=== PATIENT | female | born 1980 | race African-American/Black ===

== ENCOUNTER 2016-02-09 15:23 | Inpatient (IN) | payer OTHER ==
[~2016-02-09] VITALS: Ht 165.1 cm; Wt 107.7 kg
[~2016-02-09 15:23] MED LIST: ABILIFY15 MG PO; ADVAIR 100/501 DISK IH; ADVAIR 250/501 DISK IH; ATARAX,VISTARIL50 MG PO; BENADRYL50 MG PO; BENTYL10 MG PO; BUPRENORPHINE HC8 MG SL; CIPRO500 MG PO; CLINDAMYCIN HC300 MG PO; CYANOCOBALAM1000 MCG PO; DEPAKOTE500 MG PO; DICLOFENAC SODI75 MG PO; DURAGESIC12 MCG TD; FLEXERIL10 MG PO; FLONASE ALLERG9.9 ML BOTH NARES; FLONASE16 G1 BOTH NARES; FUROSEMIDE40 MG PO; GABAPENTIN300 MG PO; INDOCIN25 MG PO; KALETRA 100-251 EACH PO; KALETRA 200/501 TAB PO; KEFLEX500 MG PO; LASIX40 MG PO; LYRICA50 MG PO; MORPHINE SULFAT15 MG PO; MOTRIN600 MG PO; NAPROXEN500 MG PO; OXAYDO5 MG PO; PERCOCET 10/1 TABLET PO; PERCOCET 5/31 TABLET PO; PREDNISONE10 M1 PO; PREDNISONE20 MG PO; PROAIR HFA8.5 GM IH; PROZAC10 MG PO; PROZAC20 MG PO; SOMA350 MG PO; SUBOXONE 8 MG-1 EAC2 SL; TRAMADOL HCL50 MG PO; TRUVADA1 TABLET PO; ULTRAM50 MG PO; VENTOLIN HFA18 GM IH; VITAMIN B122500 MCG PO; XANAX0.5 MG PO; XANAX2 MG PO; ZANTAC150 MG PO; ZITHROMAX Z-PA250 MG PO; ZUBSOLV 8.6-2.1 EACH SL
[2016-02-09 16:26] LABS: HEMATOCRIT 37.1 % (36.0-46.0); MCH 27.2 PG (29.0-34.0); MCHC 33.2 G/DL (30.0-36.0); MCV 81.9 FL (83-99); MEAN PLAT.VOLUME 9.3 uM^3 (9.5-12.4); PLATELET COUNT 216 K/uL (156-360); RBC DIS.WIDTH-CV 13.1 % (11.8-14.6); RBC DIS.WIDTH-SD 38.1 % (39-53); RED BLOOD COUNT 4.53 M/uL (3.80-5.20); WHITE BLOOD COUNT 4.3 K/uL (4.1-10.2)
[2016-02-09 16:35] LABS: CHLORIDE 110 mEq/L (99-109); POTASSIUM 3.5 mEq/L (3.7-5.4); SODIUM 141 mEq/L (136-147)
[2016-02-09 16:36] LABS: GLUCOSE 91 mg/dL (70-99)
[2016-02-09 16:38] LABS: ANION GAP 13 MEQ/L (2-14)
[2016-02-09 16:40] LABS: GFR ESTIMATE (CALCULATED) > 59 mL/min/; SERUM ETHYL ALCOHOL < 10 mg/dL
[2016-02-09 16:41] LABS: UREA NITROGEN (BUN) 9 mg/dL (9-23)
[2016-02-09 16:49] LABS: QUANTITATIVE HCG < 4.0 MIU/ML
[2016-02-09 20:05] VITALS: BP 100/55
[2016-02-09 20:31] VITALS: BP 100/55
[2016-02-10 09:15] VITALS: BP 123/72
[2016-02-10 15:46] VITALS: BP 132/80
[2016-02-11 07:51] VITALS: BP 112/57
[2016-02-11 15:35] VITALS: BP 124/59
[2016-02-12 07:58] VITALS: BP 109/59
[2016-02-12 08:47] LABS: AMPHETAMINES QUANT VALUE 0 NG/ML; BARBITUATES QUANT VALUE 0 NG/ML; BENZODIAZEPINES QUANT VALUE 0 NG/ML; BENZODIAZEPINES, URINE SCREEN Negative (200 ng/mL); MARIJUANA QUANT VALUE 0 NG/ML; PHENCYCLIDINE QUANT VALUE 0 NG/ML
[2016-02-12 16:02] VITALS: BP 117/58
[2016-02-13 08:07] VITALS: BP 113/58
[2016-02-13] MEDS ORDERED: DIVALPROEX SOD250 MG PO (11:07)
== END 2016-02-13 14:00 | disposition home or self-care (01) | DRG 896 ==
LOC: EME → EDBD 15:23 → EME 15:23 → 1WEST 18:28 → EDOF 18:28 → 1WEST 19:58
PROVIDERS: Emergency Medicine; Nurse Practitioner Family
DX: F11.921 Opioid use, unspecified with intoxication delirium (principal); B20 Human immunodeficiency virus [HIV] disease; F31.9 Bipolar disorder, unspecified; F41.9 Anxiety disorder, unspecified; G89.29 Other chronic pain; M54.9 Dorsalgia, unspecified
CPT/HCPCS: 80048; 84702; 85027; 90837; 97150 GO; 97165 GO; 99281; 99285; G0480; J1630; J2060; Q0177

== ENCOUNTER 2016-02-16 11:54 | Emergency (ER) | payer OTHER ==
[~2016-02-16] VITALS: Ht 167.6 cm; Wt 106.7 kg
[~2016-02-16 11:54] MED LIST changes: +DIVALPROEX SOD250 MG PO
[2016-02-16 13:55] VITALS: BP 130/80
== END 2016-02-16 13:56 | disposition home or self-care (01) ==
LOC: EME 11:54
DX: F22 Delusional disorders (principal); J45.909 Unspecified asthma, uncomplicated; K21.9 Gastro-esophageal reflux disease without esophagitis; M32.9 Systemic lupus erythematosus, unspecified; Z21 Asymptomatic human immunodeficiency virus [HIV] infection status; M06.9 Rheumatoid arthritis, unspecified; R73.03 Prediabetes; F17.200 Nicotine dependence, unspecified, uncomplicated
CPT/HCPCS: 80053; 81003; 85027; 90837; 99281; 99284; G0480

== ENCOUNTER 2016-02-17 14:48 | Emergency (ER) | payer OTHER ==
[~2016-02-17] VITALS: Ht 167.6 cm; Wt 106.5 kg
[2016-02-17 17:38] LABS: EOSINOPHIL (%) 0 % (0-5); HEMATOCRIT 37.2 % (36.0-46.0); IMMATURE GRANULOCYTE (%) 0.3 % (0.0-0.7); IMMATURE GRANULOCYTE COUNT 0.1 K/uL; LYMPHOCYTE COUNT 1.6 K/uL (1.0-2.8); MCH 27.4 PG (29.0-34.0); MCHC 32.5 G/DL (30.0-36.0); MCV 84.4 FL (83-99); MEAN PLAT.VOLUME 9.8 uM^3 (9.5-12.4); MONOCYTE (%) 12.7 % (3-12); MONOCYTE COUNT 0.4 K/uL (0-0.8); NEUTROPHIL (%) 37.2 % (45-76); NEUTROPHIL COUNT 1.2 K/uL (1.8-6.4); PLATELET COUNT 219 K/uL (156-360); RBC DIS.WIDTH-CV 13.5 % (11.8-14.6); RBC DIS.WIDTH-SD 40.6 % (39-53); RED BLOOD COUNT 4.41 M/uL (3.80-5.20); WHITE BLOOD COUNT 3.2 K/uL (4.1-10.2)
[2016-02-17 17:49] LABS: CHLORIDE 107 mEq/L (99-109); POTASSIUM 3.6 mEq/L (3.7-5.4); SODIUM 140 mEq/L (136-147)
[2016-02-17 17:52] LABS: GLUCOSE 103 mg/dL (70-99)
[2016-02-17 17:53] LABS: ANION GAP 11 MEQ/L (2-14); TOTAL BILIRUBIN 0.6 mg/dL (0.0-1.0)
[2016-02-17 17:54] LABS: SERUM ETHYL ALCOHOL < 10 mg/dL
[2016-02-17 17:55] LABS: ALKALINE PHOSPHATASE 96 IU/L (3-129); GFR ESTIMATE (CALCULATED) > 59 mL/min/
[2016-02-17 17:56] LABS: UREA NITROGEN (BUN) 8 mg/dL (9-23)
[2016-02-17 18:04] LABS: QUANTITATIVE HCG < 4.0 MIU/ML
[2016-02-17 18:28] LABS: SAMPLE HEMOLYSIS CHECK 0; SAMPLE ICTERIC CHECK 0; SAMPLE LIPEMIA CHECK 0
[2016-02-17 18:57] VITALS: BP 105/68
== END 2016-02-17 18:57 | disposition home or self-care (01) ==
LOC: EME 14:48
PROVIDERS: Emergency Medicine
DX: F31.9 Bipolar disorder, unspecified (principal); F41.9 Anxiety disorder, unspecified; Z21 Asymptomatic human immunodeficiency virus [HIV] infection status; M32.9 Systemic lupus erythematosus, unspecified; M06.9 Rheumatoid arthritis, unspecified; Z87.891 Personal history of nicotine dependence
CPT/HCPCS: 80053; 80164; 84702; 85025; 90839; 99281; 99283; G0480

== ENCOUNTER 2016-02-27 09:41 | Emergency (ER) | payer OTHER ==
[~2016-02-27] VITALS: Ht 165.1 cm; Wt 104.6 kg
[2016-02-27 10:53] LABS: CHLORIDE 110 mEq/L (99-109); SODIUM 140 mEq/L (136-147)
[2016-02-27 10:55] LABS: GLUCOSE 112 mg/dL (70-99)
[2016-02-27 10:56] LABS: ANION GAP 10 MEQ/L (2-14)
[2016-02-27 10:58] LABS: HEMATOCRIT 36.6 % (36.0-46.0); MCHC 32.8 G/DL (30.0-36.0); MCV 85.3 FL (83-99); MEAN PLAT.VOLUME 9.8 uM^3 (9.5-12.4); PLATELET COUNT 199 K/uL (156-360); RBC DIS.WIDTH-CV 13.5 % (11.8-14.6); RBC DIS.WIDTH-SD 41.9 % (39-53); RED BLOOD COUNT 4.29 M/uL (3.80-5.20); SERUM ETHYL ALCOHOL < 10 mg/dL
[2016-02-27 10:59] LABS: GFR ESTIMATE (CALCULATED) > 59 mL/min/; WHITE BLOOD COUNT 5.7 K/uL (4.1-10.2)
[2016-02-27 11:01] LABS: UREA NITROGEN (BUN) 8 mg/dL (9-23)
[2016-02-27 11:02] LABS: SALICYLATE < 5.0 MG/DL (15-30)
[2016-02-27 11:10] LABS: QUANTITATIVE HCG < 4.0 MIU/ML
[2016-02-27 13:10] LABS: AMPHETAMINE NEGATIVE (500 ng/mL); BARBITURATES NEGATIVE (200 ng/mL); BENZODIAZEPINES NEGATIVE (150 ng/mL); COCAINE NEGATIVE (150 ng/mL); INTERNAL CONTROLS VALID? YES; METHADONE NEGATIVE (200 ng/mL); METHAMPHETAMINE NEGATIVE (500 ng/mL); OPIATES (MORPHINE) NEGATIVE (100 ng/mL); OXYCODONE NEGATIVE (100 ng/mL); PHENCYCLIDINE NEGATIVE (25 ng/mL); PROPOXYPHENE NEGATIVE (300 ng/mL); THC CANNABINOIDS NEGATIVE (50 ng/mL); TRICYCLIC ANTIDEPRESSANTS NEGATIVE (300 ng/mL)
[2016-02-27 14:00] VITALS: BP 112/72
== END 2016-02-27 14:15 ==
LOC: EME → EDBD 09:41 → EME 09:41
PROVIDERS: Emergency Medicine
DX: Z04.6 Encounter for general psychiatric examination, requested by authority (principal); F43.9 Reaction to severe stress, unspecified; F31.9 Bipolar disorder, unspecified; Z21 Asymptomatic human immunodeficiency virus [HIV] infection status; Z88.0 Allergy status to penicillin; Z88.6 Allergy status to analgesic agent
CPT/HCPCS: 80048; 84702; 85027; 90837; 99281; 99284; G0480

== ENCOUNTER 2016-08-25 03:22 | Inpatient (IN) | payer OTHER ==
[~2016-08-25] VITALS: Ht 167.6 cm; Wt 106.7 kg
[2016-08-25] MEDS ORDERED: GABAPENTIN600 MG PO (03:29)
[2016-08-25] MEDS ORDERED: HYDROCODON-ACE1 EAC7 PO (03:29)
[2016-08-25] MEDS ORDERED: BACTRIM,SEPT1 TABLET PO (03:30)
[2016-08-25] MEDS ORDERED: MORPHINE SULFAT15 M1 PO (03:30)
[2016-08-25] MEDS ORDERED: STRIBILD TABLE1 EACH PO (03:32)
[2016-08-25 04:37] LABS: HEMATOCRIT 34.1 % (36.0-46.0); MCH 27.7 PG (29.0-34.0); MCV 86.5 FL (83-99); MEAN PLAT.VOLUME 9.6 uM^3 (9.5-12.4); PLATELET COUNT 208 K/uL (156-360); RBC DIS.WIDTH-CV 12.5 % (11.8-14.6); RBC DIS.WIDTH-SD 40.1 % (39-53); RED BLOOD COUNT 3.94 M/uL (3.80-5.20); WHITE BLOOD COUNT 5.2 K/uL (4.1-10.2)
[2016-08-25 04:48] LABS: CHLORIDE 109 mEq/L (99-109); POTASSIUM 4.2 mEq/L (3.7-5.4); SODIUM 138 mEq/L (136-147)
[2016-08-25 04:50] LABS: GLUCOSE 115 mg/dL (70-99)
[2016-08-25 04:51] LABS: ANION GAP 8 MEQ/L (2-14)
[2016-08-25 04:53] LABS: SERUM ETHYL ALCOHOL < 10 mg/dL
[2016-08-25 04:54] LABS: GFR ESTIMATE (CALCULATED) > 59 mL/min/
[2016-08-25 04:56] LABS: UREA NITROGEN (BUN) 15 mg/dL (9-23)
[2016-08-25 04:57] LABS: SALICYLATE < 5.0 MG/DL (15-30)
[2016-08-25 05:03] LABS: QUANTITATIVE HCG 27.4 MIU/ML
[2016-08-25] MEDS ORDERED: AZITHROMYCIN600 MG PO (07:51)
[2016-08-25 15:42] VITALS: BP 118/63
[2016-08-26 07:07] VITALS: BP 106/57
[2016-08-26 15:40] VITALS: BP 103/57
[2016-08-27 07:26] VITALS: BP 105/58
[2016-08-27 15:38] VITALS: BP 120/74
[2016-08-28 07:31] VITALS: BP 116/55
[2016-08-28 15:20] VITALS: BP 120/57
[2016-08-29 07:25] VITALS: BP 97/58
[2016-08-29 15:23] VITALS: BP 100/56
[2016-08-30 07:31] VITALS: BP 112/55
[2016-08-30 15:36] VITALS: BP 113/58
[2016-08-31 07:38] VITALS: BP 114/58
[2016-08-31] MEDS ORDERED: FLUPHENAZINE HC10 MG PO (10:26)
[2016-08-31] MEDS ORDERED: DIVALPROEX SOD500 MG PO (10:26)
== END 2016-08-31 12:49 | disposition home or self-care (01) | DRG 881 ==
LOC: EME → EDBD 03:22 → EDOF 04:40 → 1WEST 04:40
PROVIDERS: Emergency Medicine
DX: F32.9 Major depressive disorder, single episode, unspecified (principal); Z21 Asymptomatic human immunodeficiency virus [HIV] infection status; K21.9 Gastro-esophageal reflux disease without esophagitis; G47.10 Hypersomnia, unspecified; M06.9 Rheumatoid arthritis, unspecified; J45.909 Unspecified asthma, uncomplicated; F22 Delusional disorders; Z87.891 Personal history of nicotine dependence; Z91.5 Personal history of self-harm
CPT/HCPCS: 80048; 80306 90; 81003; 84702; 85027; 90837; 97150 GO; 97166 GO; 99281; 99285; G0480; Q0177

== ENCOUNTER 2016-10-08 12:07 | Emergency (ER) | payer OTHER ==
[~2016-10-08] VITALS: Ht 167.6 cm; Wt 109.3 kg
[~2016-10-08 12:07] MED LIST changes: +AZITHROMYCIN600 MG PO; +BACTRIM,SEPT1 TABLET PO; +DIVALPROEX SOD500 MG PO; +FLUPHENAZINE HC10 MG PO; +GABAPENTIN600 MG PO; +HYDROCODON-ACE1 EAC7 PO; +MORPHINE SULFAT15 M1 PO; +STRIBILD TABLE1 EACH PO
[2016-10-08 13:12] LABS: EOSINOPHIL (%) 2.2 % (0-5); EOSINOPHIL COUNT 0.1 K/uL (0-0.3); HEMATOCRIT 36.8 % (36.0-46.0); IMMATURE GRANULOCYTE (%) 0.3 % (0.0-0.7); INSTRUMENT ABS NEUTROPHIL CT 1.2 K/uL; LYMPHOCYTE COUNT 2.1 K/uL (1.0-2.8); MCH 28.2 PG (29.0-34.0); MCHC 32.1 G/DL (30.0-36.0); MCV 87.8 FL (83-99); MEAN PLAT.VOLUME 9.6 uM^3 (9.5-12.4); MONOCYTE (%) 9.7 % (3-12); MONOCYTE COUNT 0.4 K/uL (0-0.8); NEUTROPHIL (%) 31.7 % (45-76); NEUTROPHIL COUNT 1.2 K/uL (1.8-6.4); PLATELET COUNT 171 K/uL (156-360); RBC DIS.WIDTH-CV 13.3 % (11.8-14.6); RBC DIS.WIDTH-SD 43.2 % (39-53); RED BLOOD COUNT 4.19 M/uL (3.80-5.20); WHITE BLOOD COUNT 3.7 K/uL (4.1-10.2)
[2016-10-08 13:22] LABS: CHLORIDE 106 mEq/L (99-109); POTASSIUM 4.6 mEq/L (3.7-5.4); SODIUM 136 mEq/L (136-147)
[2016-10-08 13:24] LABS: GLUCOSE 85 mg/dL (70-99)
[2016-10-08 13:25] LABS: ANION GAP 8 MEQ/L (2-14)
[2016-10-08 13:27] LABS: GFR ESTIMATE (CALCULATED) > 59 mL/min/; SERUM ETHYL ALCOHOL < 10 mg/dL
[2016-10-08 13:28] LABS: UREA NITROGEN (BUN) 12 mg/dL (9-23)
[2016-10-08 13:35] LABS: QUANTITATIVE HCG < 4.0 MIU/ML
[2016-10-08 14:12] VITALS: BP 121/77
== END 2016-10-08 14:14 | disposition home or self-care (01) ==
LOC: EME 12:07
PROVIDERS: Emergency Medicine
DX: F25.9 Schizoaffective disorder, unspecified (principal); B20 Human immunodeficiency virus [HIV] disease; F17.200 Nicotine dependence, unspecified, uncomplicated
CPT/HCPCS: 80048; 81003; 84702; 85025; 90839; 99281; 99285; G0480

== ENCOUNTER 2017-03-17 12:44 | Emergency (ER) | payer OTHER ==
[~2017-03-17] VITALS: Ht 167.6 cm; Wt 111.1 kg
[2017-03-17 13:04] LABS: MCH 29.8 PG (29.0-34.0); MCHC 34.3 G/DL (30.0-36.0); MCV 86.8 FL (83-99); PLATELET COUNT 236 K/uL (156-360); RBC DIS.WIDTH-SD 38.4 % (39-53); RED BLOOD COUNT 4.03 M/uL (3.80-5.20); WHITE BLOOD COUNT 4.8 K/uL (4.1-10.2)
[2017-03-17 13:22] LABS: ALBUMIN 3.8 g/dL (3.2-4.8); CHLORIDE 106 mEq/L (99-109); POTASSIUM 3.8 mEq/L (3.7-5.4); SODIUM 136 mEq/L (136-147)
[2017-03-17 13:23] LABS: APPEARANCE SL.HAZY ((CLEAR)); BILIRUBIN NEGATIVE; BLOOD NEGATIVE; COLOR YELLOW ((YELLOW)); GLUCOSE (STRIP) NEGATIVE; KETONES NEGATIVE; LEUKOCYTES NEGATIVE; NITRITE NEGATIVE; PROTEIN (STRIP) 30; SPECIFIC GRAVITY 1.027 (1.000-1.030); UROBILINOGEN 0.2 MG/DL (0.2-1.0)
[2017-03-17 13:24] LABS: GLUCOSE 103 mg/dL (70-99); TOTAL PROTEIN 7.3 g/dL (6.4-8.3)
[2017-03-17 13:26] LABS: TOTAL BILIRUBIN 0.2 mg/dL (0.0-1.0)
[2017-03-17 13:27] LABS: BACTERIA RARE /HPF; EPITHELIAL CELLS 2+ /HPF; MUCUS 2+ /LPF; RED BLOOD CELLS 0-5 /HPF (0-5); UCUL ADDED? NO; WHITE BLOOD CELLS 0-5 /HPF (0-5)
[2017-03-17 13:28] LABS: ALKALINE PHOSPHATASE 93 IU/L (3-129); CREATININE 0.8 mg/dL (0.6-1.3); GFR ESTIMATE (CALCULATED) > 59 mL/min/
[2017-03-17 13:29] LABS: UREA NITROGEN (BUN) 8 mg/dL (9-23)
[2017-03-17 13:30] LABS: AST (GOT) 11 IU/L (2-34)
[2017-03-17 13:31] LABS: ALT (GPT) 10 IU/L (3-49)
[2017-03-17 13:54] LABS: QUANTITATIVE HCG 86685.9 MIU/ML
[2017-03-17] MEDS ORDERED: ZOFRAN ODT4 MG PO (16:45)
[2017-03-17 16:52] VITALS: BP 127/83
== END 2017-03-17 16:52 | disposition home or self-care (01) ==
LOC: EME 12:44 → RME 12:44
DX: O99.89 Other specified diseases and conditions complicating pregnancy, childbirth and the puerperium (principal); R10.13 Epigastric pain; Z3A.10 10 weeks gestation of pregnancy; O98.711 Human immunodeficiency virus [HIV] disease complicating pregnancy, first trimester; Z21 Asymptomatic human immunodeficiency virus [HIV] infection status; O99.611 Diseases of the digestive system complicating pregnancy, first trimester; K21.9 Gastro-esophageal reflux disease without esophagitis; O99.511 Diseases of the respiratory system complicating pregnancy, first trimester; J45.909 Unspecified asthma, uncomplicated; O99.331 Smoking (tobacco) complicating pregnancy, first trimester; F17.200 Nicotine dependence, unspecified, uncomplicated; O99.341 Other mental disorders complicating pregnancy, first trimester; F32.9 Major depressive disorder, single episode, unspecified; Z88.0 Allergy status to penicillin; Z88.5 Allergy status to narcotic agent
CPT/HCPCS: 76801; 80053; 81003; 84702; 85027; 99281; 99284

== ENCOUNTER 2017-03-30 14:29 | Emergency (ER) | payer OTHER ==
[~2017-03-30] VITALS: Ht 177.8 cm; Wt 104.9 kg
[~2017-03-30 14:29] MED LIST changes: +ZOFRAN ODT4 MG PO
[2017-03-30 15:34] LABS: HEMATOCRIT 35.4 % (36.0-46.0); HEMOGLOBIN 12.2 G/DL (11.9-15.5); MCH 29.3 PG (29.0-34.0); MCHC 34.5 G/DL (30.0-36.0); MCV 84.9 FL (83-99); PLATELET COUNT 241 K/uL (156-360); RBC DIS.WIDTH-CV 11.9 % (11.8-14.6); RED BLOOD COUNT 4.17 M/uL (3.80-5.20)
[2017-03-30 15:41] LABS: CHLORIDE 107 mEq/L (99-109); POTASSIUM 3.3 mEq/L (3.7-5.4); SODIUM 137 mEq/L (136-147)
[2017-03-30 15:43] LABS: GLUCOSE 106 mg/dL (70-99); TOTAL PROTEIN 7.5 g/dL (6.4-8.3)
[2017-03-30 15:45] LABS: TOTAL BILIRUBIN 0.7 mg/dL (0.0-1.0)
[2017-03-30 15:47] LABS: ALKALINE PHOSPHATASE 98 IU/L (3-129); CREATININE 0.8 mg/dL (0.6-1.3); GFR ESTIMATE (CALCULATED) > 59 mL/min/
[2017-03-30 15:48] LABS: UREA NITROGEN (BUN) 5 mg/dL (9-23)
[2017-03-30 15:49] LABS: AST (GOT) 16 IU/L (2-34)
[2017-03-30 15:50] LABS: ALT (GPT) 22 IU/L (3-49)
[2017-03-30 16:15] LABS: QUANTITATIVE HCG 79265.3 MIU/ML
[2017-03-30 16:58] LABS: APPEARANCE SL.HAZY ((CLEAR)); BILIRUBIN NEGATIVE; BLOOD NEGATIVE; COLOR AMBER ((YELLOW)); GLUCOSE (STRIP) NEGATIVE; KETONES 80; LEUKOCYTES NEGATIVE; NITRITE NEGATIVE; PROTEIN (STRIP) 100; SPECIFIC GRAVITY 1.031 (1.000-1.030)
[2017-03-30 17:27] LABS: RED BLOOD CELLS NONE SEEN /HPF (0-5); WHITE BLOOD CELLS NONE SEEN /HPF (0-5)
[2017-03-30 17:28] LABS: BACTERIA RARE /HPF; EPITHELIAL CELLS 2+ /HPF; MUCUS 2+ /LPF; UCUL ADDED? NO
[2017-03-30] MEDS ORDERED: ZOFRAN ODT4 MG PO (18:09)
[2017-03-30 20:08] VITALS: BP 111/81
== END 2017-03-30 20:09 | disposition home or self-care (01) ==
LOC: EME 14:29
DX: O99.281 Endocrine, nutritional and metabolic diseases complicating pregnancy, first trimester (principal); E86.0 Dehydration; O21.9 Vomiting of pregnancy, unspecified; Z3A.12 12 weeks gestation of pregnancy; O99.611 Diseases of the digestive system complicating pregnancy, first trimester; K21.9 Gastro-esophageal reflux disease without esophagitis; O99.511 Diseases of the respiratory system complicating pregnancy, first trimester; J45.909 Unspecified asthma, uncomplicated; O99.341 Other mental disorders complicating pregnancy, first trimester; F32.9 Major depressive disorder, single episode, unspecified; O26.891 Other specified pregnancy related conditions, first trimester; M06.9 Rheumatoid arthritis, unspecified; M32.9 Systemic lupus erythematosus, unspecified; Z21 Asymptomatic human immunodeficiency virus [HIV] infection status; Z88.0 Allergy status to penicillin; Z88.5 Allergy status to narcotic agent; Z91.040 Latex allergy status; Z87.891 Personal history of nicotine dependence
CPT/HCPCS: 80053; 81003; 84702; 85027; 99281; 99285; J2405; J7030

== ENCOUNTER 2017-04-08 11:32 | Inpatient (IN) | payer OTHER ==
[~2017-04-08] VITALS: Ht 165.1 cm; Wt 98.7 kg
[2017-04-08 12:57] LABS: BASOPHIL (%) 0.2 % (0-1); EOSINOPHIL (%) 0.2 % (0-5); HEMOGLOBIN 12.5 G/DL (11.9-15.5); IMMATURE GRANULOCYTE (%) 0.4 % (0.0-0.7); LYMPHOCYTE (%) 32.8 % (15-42); LYMPHOCYTE COUNT 1.7 K/uL (1.0-2.8); MCH 29.1 PG (29.0-34.0); MCHC 34.7 G/DL (30.0-36.0); MCV 83.9 FL (83-99); MONOCYTE (%) 9.1 % (3-12); MONOCYTE COUNT 0.5 K/uL (0-0.8); NEUTROPHIL (%) 57.3 % (45-76); PLATELET COUNT 251 K/uL (156-360); RBC DIS.WIDTH-SD 36.4 % (39-53); RED BLOOD COUNT 4.29 M/uL (3.80-5.20); WHITE BLOOD COUNT 5.3 K/uL (4.1-10.2)
[2017-04-08 13:05] LABS: ALBUMIN 4.1 g/dL (3.2-4.8); CHLORIDE 105 mEq/L (99-109)
[2017-04-08 13:06] LABS: POTASSIUM 3.5 mEq/L (3.7-5.4); SODIUM 135 mEq/L (136-147)
[2017-04-08 13:08] LABS: GLUCOSE 104 mg/dL (70-99); TOTAL PROTEIN 8.1 g/dL (6.4-8.3)
[2017-04-08 13:10] LABS: TOTAL BILIRUBIN 1.3 mg/dL (0.0-1.0)
[2017-04-08 13:11] LABS: SERUM ETHYL ALCOHOL < 10 mg/dL
[2017-04-08 13:12] LABS: ALKALINE PHOSPHATASE 108 IU/L (3-129); CREATININE 0.7 mg/dL (0.6-1.3); GFR ESTIMATE (CALCULATED) > 59 mL/min/
[2017-04-08 13:13] LABS: AST (GOT) 33 IU/L (2-34); DIRECT BILIRUBIN 0.5 mg/dL (0.0-0.3)
[2017-04-08 13:14] LABS: UREA NITROGEN (BUN) 8 mg/dL (9-23)
[2017-04-08 13:15] LABS: SALICYLATE < 5.0 MG/DL (15-30)
[2017-04-08 13:16] LABS: ACETAMINOPHEN (TYLENOL) < 10 mcg/mL (10-30); ALT (GPT) 61 IU/L (3-49)
[2017-04-08 13:46] LABS: QUANTITATIVE HCG 75817.2 MIU/ML
[2017-04-08 16:59] VITALS: BP 121/69
[2017-04-08 17:00] VITALS: BP 121/69
[2017-04-08] MEDS ORDERED: MELOXICAM15 MG PO (18:38)
[2017-04-08] MEDS ORDERED: SERTRALINE HCL50 MG PO (18:40)
[2017-04-08] MEDS ORDERED: CYMBALTA30 MG PO (18:44)
[2017-04-08] MEDS ORDERED: PERCOCET 5/31 TABLET PO (18:50)
[2017-04-08] MEDS ORDERED: OXYCODONE-APAP1 EAC6 PO (18:53)
[2017-04-10 15:46] VITALS: BP 122/60
[2017-04-11 08:00] VITALS: BP 100/56
[2017-04-11 15:44] VITALS: BP 129/71
[2017-04-12 07:32] VITALS: BP 112/70
[2017-04-12] MEDS ORDERED: FLUPHENAZINE HCL1 MG PO (09:07)
[2017-04-12] MEDS ORDERED: PRENATAL VITAM1 EAC6 PO (09:07)
== END 2017-04-12 13:17 | disposition home or self-care (01) | DRG 885 ==
LOC: EME 11:32 → 1WEST 15:50 → EDOF 15:50 → ENRESERV 16:25 → 1WEST 16:49
PROVIDERS: Emergency Medicine
DX: F25.0 Schizoaffective disorder, bipolar type (principal); O99.340 Other mental disorders complicating pregnancy, unspecified trimester; Z21 Asymptomatic human immunodeficiency virus [HIV] infection status; M32.9 Systemic lupus erythematosus, unspecified; M06.9 Rheumatoid arthritis, unspecified; F41.9 Anxiety disorder, unspecified; Z87.891 Personal history of nicotine dependence; K21.9 Gastro-esophageal reflux disease without esophagitis; J45.909 Unspecified asthma, uncomplicated; Z91.5 Personal history of self-harm; D64.9 Anemia, unspecified
CPT/HCPCS: 80048; 80076; 81003; 84702; 85025; 90837; 97150 GO; 97165 GO; 99281; 99284; G0480

== ENCOUNTER 2017-04-17 14:40 | Inpatient (IN) | payer OTHER ==
[~2017-04-17] VITALS: Ht 167.6 cm; Wt 102.3 kg
[~2017-04-17 14:40] MED LIST changes: +CYMBALTA30 MG PO; +FLUPHENAZINE HCL1 MG PO; +MELOXICAM15 MG PO; +OXYCODONE-APAP1 EAC6 PO; +PRENATAL VITAM1 EAC6 PO; +SERTRALINE HCL50 MG PO
[2017-04-17 15:39] LABS: HEMATOCRIT 37.2 % (36.0-46.0); HEMOGLOBIN 12.7 G/DL (11.9-15.5); MCH 28.9 PG (29.0-34.0); MCHC 34.1 G/DL (30.0-36.0); MCV 84.5 FL (83-99); PLATELET COUNT 237 K/uL (156-360); RBC DIS.WIDTH-CV 12.1 % (11.8-14.6)
[2017-04-17 15:47] LABS: CHLORIDE 105 mEq/L (99-109); POTASSIUM 3.5 mEq/L (3.7-5.4); SODIUM 137 mEq/L (136-147)
[2017-04-17 15:49] LABS: GLUCOSE 105 mg/dL (70-99); TOTAL PROTEIN 7.9 g/dL (6.4-8.3)
[2017-04-17 15:51] LABS: TOTAL BILIRUBIN 0.5 mg/dL (0.0-1.0)
[2017-04-17 15:52] LABS: SERUM ETHYL ALCOHOL < 10 mg/dL
[2017-04-17 15:53] LABS: ALKALINE PHOSPHATASE 110 IU/L (3-129); CREATININE 0.7 mg/dL (0.6-1.3); GFR ESTIMATE (CALCULATED) > 59 mL/min/
[2017-04-17 15:54] LABS: AST (GOT) 32 IU/L (2-34); UREA NITROGEN (BUN) 4 mg/dL (9-23)
[2017-04-17 15:56] LABS: ALT (GPT) 56 IU/L (3-49)
[2017-04-17 16:25] LABS: QUANTITATIVE HCG 50964.5 MIU/ML
[2017-04-17 17:12] LABS: APPEARANCE SL.HAZY ((CLEAR)); BILIRUBIN NEGATIVE; BLOOD NEGATIVE; COLOR YELLOW ((YELLOW)); GLUCOSE (STRIP) NEGATIVE; KETONES NEGATIVE; LEUKOCYTES NEGATIVE; NITRITE NEGATIVE; PROTEIN (STRIP) NEGATIVE; SPECIFIC GRAVITY 1.013 (1.000-1.030); UROBILINOGEN 0.2 MG/DL (0.2-1.0)
[2017-04-17 17:19] LABS: BACTERIA RARE /HPF; EPITHELIAL CELLS 1+ /HPF; MUCUS 1+ /LPF; RED BLOOD CELLS 0-5 /HPF (0-5); WHITE BLOOD CELLS 0-5 /HPF (0-5)
[2017-04-17 17:20] LABS: AMPHETAMINE NEGATIVE (500 ng/mL); BARBITURATES NEGATIVE (200 ng/mL); BENZODIAZEPINES NEGATIVE (150 ng/mL); BUPRENORPHINE NEGATIVE (10 ng/mL); COCAINE NEGATIVE (150 ng/mL); METHADONE NEGATIVE (200 ng/mL); METHAMPHETAMINE NEGATIVE (500 ng/mL); OPIATES (MORPHINE) NEGATIVE (100 ng/mL); OXYCODONE NEGATIVE (100 ng/mL); PHENCYCLIDINE NEGATIVE (25 ng/mL); PROPOXYPHENE NEGATIVE (300 ng/mL); THC CANNABINOIDS NEGATIVE (50 ng/mL); TRICYCLIC ANTIDEPRESSANTS NEGATIVE (300 ng/mL)
[2017-04-17 22:42] VITALS: BP 107/67
[2017-04-17 22:43] VITALS: BP 107/67
[2017-04-18 07:39] VITALS: BP 96/55
[2017-04-18 15:30] VITALS: BP 91/53
[2017-04-19 08:09] VITALS: BP 102/56
[2017-04-19 16:12] VITALS: BP 114/67
[2017-04-20 07:21] VITALS: BP 102/55
[2017-04-20] MEDS ORDERED: FLUPHENAZINE HCL1 MG PO (08:53)
[2017-04-20] MEDS ORDERED: FLUPHENAZI25 MG/1 ML IM (08:53)
== END 2017-04-20 10:02 | disposition home or self-care (01) | DRG 885 ==
LOC: EME 14:40 → 1WEST 21:33 → EDOF 21:33 → 1WEST 21:33 → ENRESERV 22:01 → 1WEST 22:36
PROVIDERS: Emergency Medicine
DX: F25.0 Schizoaffective disorder, bipolar type (principal); F44.9 Dissociative and conversion disorder, unspecified; E87.6 Hypokalemia; Z21 Asymptomatic human immunodeficiency virus [HIV] infection status; Z33.1 Pregnant state, incidental; Z91.19 Patient's noncompliance with other medical treatment and regimen
CPT/HCPCS: 80053; 81003; 84702; 85027; 90839; 99281; 99285; G0480; J2680

== ENCOUNTER 2017-04-25 06:29 | Emergency (ER) | payer OTHER ==
[~2017-04-25] VITALS: Ht 167.6 cm; Wt 106.6 kg
[~2017-04-25 06:29] MED LIST changes: +FLUPHENAZI25 MG/1 ML IM
[2017-04-25] MEDS ORDERED: ZOFRAN ODT8 MG PO (06:35)
[2017-04-25 06:59] LABS: HEMATOCRIT 32.6 % (36.0-46.0); HEMOGLOBIN 11.2 G/DL (11.9-15.5); MCHC 34.4 G/DL (30.0-36.0); MCV 84.5 FL (83-99); PLATELET COUNT 222 K/uL (156-360); RBC DIS.WIDTH-CV 12.2 % (11.8-14.6); RBC DIS.WIDTH-SD 37.7 % (39-53); RED BLOOD COUNT 3.86 M/uL (3.80-5.20); WHITE BLOOD COUNT 5.2 K/uL (4.1-10.2)
[2017-04-25 07:37] LABS: ALBUMIN 3.3 G/DL (3.2-4.8); ALKALINE PHOSPHATASE 84 IU/L (3-129); ALT (GPT) 36 IU/L (3-49); AST (GOT) 18 IU/L (2-34); CHLORIDE 108 MEQ/L (99-109); CREATININE 0.7 MG/DL (0.6-1.3); GFR ESTIMATE (CALCULATED) > 59 mL/min/; GLUCOSE 117 mg/dL (70-99); LIPASE 31 U/L (1.0-51.0); POTASSIUM 3.6 MEQ/L (3.7-5.4); SODIUM 137 MEQ/L (136-147); TOTAL PROTEIN 6.4 G/DL (6.4-8.3); UREA NITROGEN (BUN) 10 mg/dL (9-23)
[2017-04-25 07:39] LABS: TOTAL BILIRUBIN 0.2 MG/DL (0.0-1.0)
[2017-04-25 08:04] LABS: QUANTITATIVE HCG 43350.3 MIU/ML
[2017-04-25 08:29] LABS: APPEARANCE CLOUDY ((CLEAR)); BILIRUBIN NEGATIVE; BLOOD LARGE; COLOR AMBER ((YELLOW)); GLUCOSE (STRIP) NEGATIVE; KETONES NEGATIVE; LEUKOCYTES TRACE; NITRITE NEGATIVE; PROTEIN (STRIP) 100; SPECIFIC GRAVITY 1.033 (1.000-1.030); UROBILINOGEN 0.2 MG/DL (0.2-1.0)
[2017-04-25 08:42] LABS: BACTERIA 1+ /HPF; EPITHELIAL CELLS 1+ /HPF; MUCUS NONE SEEN /LPF; RED BLOOD CELLS TNTC /HPF (0-5); UCUL ADDED? YES; WHITE BLOOD CELLS 0-5 /HPF (0-5)
[2017-04-25] MEDS ORDERED: NITROFURANTOIN100 MG PO (09:25)
[2017-04-25 09:49] VITALS: BP 143/80
== END 2017-04-25 09:50 | disposition home or self-care (01) ==
LOC: EME → EDBD 06:29 → EME 06:29
DX: O23.42 Unspecified infection of urinary tract in pregnancy, second trimester (principal); N39.0 Urinary tract infection, site not specified; Z3A.16 16 weeks gestation of pregnancy; O21.9 Vomiting of pregnancy, unspecified; O26.892 Other specified pregnancy related conditions, second trimester; R10.9 Unspecified abdominal pain; O99.612 Diseases of the digestive system complicating pregnancy, second trimester; O99.342 Other mental disorders complicating pregnancy, second trimester; O99.512 Diseases of the respiratory system complicating pregnancy, second trimester; F32.9 Major depressive disorder, single episode, unspecified; F41.9 Anxiety disorder, unspecified; J45.909 Unspecified asthma, uncomplicated; K21.9 Gastro-esophageal reflux disease without esophagitis; M06.9 Rheumatoid arthritis, unspecified; M32.9 Systemic lupus erythematosus, unspecified; Z87.891 Personal history of nicotine dependence; Z88.0 Allergy status to penicillin; Z88.5 Allergy status to narcotic agent
CPT/HCPCS: 76805; 80053; 81003; 83690; 84702; 85027; 87086; 99281; 99284; J0780

== ENCOUNTER 2017-05-02 20:59 | Outpatient (CLI) | payer OTHER ==
[~2017-05-02] VITALS: Ht 160 cm; Wt 105.7 kg
[~2017-05-02 20:59] MED LIST changes: +NITROFURANTOIN100 MG PO; +ZOFRAN ODT8 MG PO
[2017-05-02 21:18] VITALS: BP 115/74
[2017-05-02 21:25] VITALS: BP 123/81
[2017-05-02 22:24] LABS: SOURCE URINE
[2017-05-02 23:59] LABS: APPEARANCE CLEAR ((CLEAR)); BILIRUBIN NEGATIVE; BLOOD SMALL; COLOR YELLOW ((YELLOW)); GLUCOSE (STRIP) NEGATIVE; KETONES NEGATIVE; LEUKOCYTES NEGATIVE; NITRITE NEGATIVE; PROTEIN (STRIP) NEGATIVE; SPECIFIC GRAVITY 1.012 (1.000-1.030); UROBILINOGEN 0.2 MG/DL (0.2-1.0)
[2017-05-03 00:03] LABS: BACTERIA NONE SEEN /HPF; EPITHELIAL CELLS RARE /HPF; MUCUS TRACE /LPF; RED BLOOD CELLS TNTC /HPF (0-5); WHITE BLOOD CELLS 0-5 /HPF (0-5)
[2017-05-03 02:01] LABS: CANDIDA DNA PROBE NEGATIVE; GARDNERELLA DNA PROBE NEGATIVE; TRICHOMONAS DNA PROBE NEGATIVE
[2017-05-03 12:36] LABS: CHLAMYDIA TRACHOMATIS NEGATIVE; NEISSERIA GONORRHOEAE NEGATIVE
== END 2017-05-03 00:35 | disposition home or self-care (01) ==
LOC: EME 20:59 → EDSTATUS 21:13 → LDRP-OP 21:15 → 2WEST 21:16
PROVIDERS: Obstetrics & Gynecology
DX: O26.892 Other specified pregnancy related conditions, second trimester (principal); R10.30 Lower abdominal pain, unspecified; O99.342 Other mental disorders complicating pregnancy, second trimester; F20.9 Schizophrenia, unspecified; F43.10 Post-traumatic stress disorder, unspecified; F41.9 Anxiety disorder, unspecified; F31.9 Bipolar disorder, unspecified; O99.512 Diseases of the respiratory system complicating pregnancy, second trimester; J45.990 Exercise induced bronchospasm; O99.282 Endocrine, nutritional and metabolic diseases complicating pregnancy, second trimester; E28.2 Polycystic ovarian syndrome; O98.712 Human immunodeficiency virus [HIV] disease complicating pregnancy, second trimester; Z21 Asymptomatic human immunodeficiency virus [HIV] infection status; O26.872 Cervical shortening, second trimester; O09.212 Supervision of pregnancy with history of pre-term labor, second trimester; Z87.891 Personal history of nicotine dependence; Z90.49 Acquired absence of other specified parts of digestive tract; Z88.0 Allergy status to penicillin; Z88.5 Allergy status to narcotic agent; Z88.6 Allergy status to analgesic agent; Z3A.17 17 weeks gestation of pregnancy
CPT/HCPCS: 76805; 81003; 87086; 87480; 87491; 87510; 87591; 87660; G0378

== ENCOUNTER 2017-05-04 21:46 | Emergency (ER) | payer OTHER ==
[~2017-05-04] VITALS: Ht 170.2 cm; Wt 110.7 kg
[2017-05-04 22:43] LABS: BASOPHIL (%) 0.2 % (0-1); EOSINOPHIL (%) 0.3 % (0-5); HEMATOCRIT 29.2 % (36.0-46.0); HEMOGLOBIN 10.1 G/DL (11.9-15.5); IMMATURE GRANULOCYTE (%) 0.5 % (0.0-0.7); LYMPHOCYTE (%) 27.8 % (15-42); LYMPHOCYTE COUNT 1.8 K/uL (1.0-2.8); MCH 29.3 PG (29.0-34.0); MCHC 34.6 G/DL (30.0-36.0); MCV 84.6 FL (83-99); MONOCYTE (%) 7.3 % (3-12); MONOCYTE COUNT 0.5 K/uL (0-0.8); NEUTROPHIL (%) 63.9 % (45-76); PLATELET COUNT 241 K/uL (156-360); RBC DIS.WIDTH-CV 12.6 % (11.8-14.6); RBC DIS.WIDTH-SD 37.9 % (39-53); RED BLOOD COUNT 3.45 M/uL (3.80-5.20); WHITE BLOOD COUNT 6.3 K/uL (4.1-10.2)
[2017-05-04 22:53] LABS: CHLORIDE 106 mEq/L (99-109); POTASSIUM 3.7 mEq/L (3.7-5.4); SODIUM 135 mEq/L (136-147)
[2017-05-04 22:55] LABS: GLUCOSE 96 mg/dL (70-99)
[2017-05-04 22:59] LABS: CREATININE 0.6 mg/dL (0.6-1.3); GFR ESTIMATE (CALCULATED) > 59 mL/min/
[2017-05-04 23:00] LABS: UREA NITROGEN (BUN) 8 mg/dL (9-23)
[2017-05-05 00:45] VITALS: BP 116/73
[2017-05-05] MEDS ORDERED: RISPERDAL4 MG PO (20:20)
[2017-05-05] MEDS ORDERED: FLUPHENAZINE HCL5 MG PO (20:20)
[2017-05-05] MEDS ORDERED: STRIBILD TABLE1 EACH PO (20:20)
== END 2017-05-05 00:46 | disposition home or self-care (01) ==
LOC: EME → EDBD 21:46 → EME 21:46
PROVIDERS: Emergency Medicine
DX: O26.892 Other specified pregnancy related conditions, second trimester (principal); R10.2 Pelvic and perineal pain; Z3A.17 17 weeks gestation of pregnancy; O99.112 Other diseases of the blood and blood-forming organs and certain disorders involving the immune mechanism complicating pregnancy, second trimester; M32.9 Systemic lupus erythematosus, unspecified; O99.89 Other specified diseases and conditions complicating pregnancy, childbirth and the puerperium; M06.9 Rheumatoid arthritis, unspecified; O99.512 Diseases of the respiratory system complicating pregnancy, second trimester; J45.909 Unspecified asthma, uncomplicated; O99.612 Diseases of the digestive system complicating pregnancy, second trimester; K21.9 Gastro-esophageal reflux disease without esophagitis; O99.342 Other mental disorders complicating pregnancy, second trimester; F41.9 Anxiety disorder, unspecified; F32.9 Major depressive disorder, single episode, unspecified; F31.9 Bipolar disorder, unspecified; F20.9 Schizophrenia, unspecified; Z21 Asymptomatic human immunodeficiency virus [HIV] infection status; Z87.891 Personal history of nicotine dependence; Z90.49 Acquired absence of other specified parts of digestive tract; Z87.19 Personal history of other diseases of the digestive system; Z91.040 Latex allergy status; Z88.6 Allergy status to analgesic agent; Z88.5 Allergy status to narcotic agent; Z88.0 Allergy status to penicillin; Z88.1 Allergy status to other antibiotic agents
CPT/HCPCS: 76805; 80048; 83735; 85025; 99281; 99285

== ENCOUNTER 2017-05-05 14:59 | Inpatient (IN) | payer OTHER ==
[~2017-05-05] VITALS: Ht 175.3 cm; Wt 109.2 kg
[2017-05-05 16:09] LABS: BASOPHIL (%) 0.1 % (0-1); EOSINOPHIL (%) 0.1 % (0-5); HEMOGLOBIN 10.7 G/DL (11.9-15.5); IMMATURE GRANULOCYTE (%) 0.3 % (0.0-0.7); LYMPHOCYTE (%) 23.5 % (15-42); LYMPHOCYTE COUNT 1.8 K/uL (1.0-2.8); MCH 28.5 PG (29.0-34.0); MCHC 33.4 G/DL (30.0-36.0); MCV 85.3 FL (83-99); MONOCYTE (%) 6.8 % (3-12); MONOCYTE COUNT 0.5 K/uL (0-0.8); NEUTROPHIL (%) 69.2 % (45-76); NEUTROPHIL COUNT 5.3 K/uL (1.8-6.4); PLATELET COUNT 257 K/uL (156-360); RBC DIS.WIDTH-CV 12.5 % (11.8-14.6); RBC DIS.WIDTH-SD 39.1 % (39-53); RED BLOOD COUNT 3.75 M/uL (3.80-5.20); WHITE BLOOD COUNT 7.7 K/uL (4.1-10.2)
[2017-05-05 16:16] LABS: ALBUMIN 3.4 g/dL (3.2-4.8); CHLORIDE 106 mEq/L (99-109); POTASSIUM 3.8 mEq/L (3.7-5.4); SODIUM 136 mEq/L (136-147)
[2017-05-05 16:18] LABS: GLUCOSE 95 mg/dL (70-99)
[2017-05-05 16:20] LABS: TOTAL BILIRUBIN 0.4 mg/dL (0.0-1.0)
[2017-05-05 16:22] LABS: ALKALINE PHOSPHATASE 103 IU/L (3-129); CREATININE 0.8 mg/dL (0.6-1.3); GFR ESTIMATE (CALCULATED) > 59 mL/min/
[2017-05-05 16:23] LABS: UREA NITROGEN (BUN) 6 mg/dL (9-23)
[2017-05-05 16:24] LABS: AST (GOT) 16 IU/L (2-34)
[2017-05-05 16:25] LABS: ALT (GPT) 15 IU/L (3-49)
[2017-05-05 17:00] LABS: APPEARANCE SL.HAZY ((CLEAR)); BILIRUBIN NEGATIVE; BLOOD NEGATIVE; COLOR YELLOW ((YELLOW)); GLUCOSE (STRIP) NEGATIVE; KETONES NEGATIVE; LEUKOCYTES NEGATIVE; NITRITE NEGATIVE; PROTEIN (STRIP) 30; SPECIFIC GRAVITY 1.019 (1.000-1.030); UROBILINOGEN 0.2 MG/DL (0.2-1.0)
[2017-05-05 17:06] LABS: BACTERIA RARE /HPF; CALCIUM OXALATE CRYSTALS 4+ /HPF; EPITHELIAL CELLS RARE /HPF; HYALINE CASTS 0-5 /LPF; MUCUS TRACE /LPF; RED BLOOD CELLS 20-30 /HPF (0-5); UCUL ADDED? NO; WHITE BLOOD CELLS 0-5 /HPF (0-5)
[2017-05-05] MEDS ORDERED: STRIBILD TABLE1 EACH PO (20:20)
[2017-05-05] MEDS ORDERED: FLUPHENAZINE HCL5 MG PO (20:20)
[2017-05-05] MEDS ORDERED: RISPERDAL4 MG PO (20:20)
[2017-05-05 22:04] VITALS: BP 101/53
[2017-05-05 22:08] VITALS: BP 101/53
[2017-05-06 08:06] VITALS: BP 116/64
[2017-05-06 15:31] VITALS: BP 103/56
[2017-05-07 08:04] VITALS: BP 117/57
[2017-05-07 15:38] VITALS: BP 106/60
[2017-05-08 07:44] VITALS: BP 107/55
[2017-05-08 15:29] VITALS: BP 116/76
[2017-05-09] MEDS ORDERED: FLUPHENAZINE HCL5 MG PO (07:47)
[2017-05-09] MEDS ORDERED: FLUPHENAZI25 MG/1 ML IM (07:50)
[2017-05-09 07:59] VITALS: BP 124/58
[2017-05-10 15:47] LABS: CD4/CD8 Ratio 0.13 (0.86-5.00)
== END 2017-05-09 10:58 | disposition home or self-care (01) | DRG 775 ==
LOC: EME 14:59 → EDOF 20:15 → 1WEST 20:15 → ENRESERV 21:49 → 1WEST 21:50
PROVIDERS: Emergency Medicine; Psychiatry & Neurology Psychiatry
DX: O99.342 Other mental disorders complicating pregnancy, second trimester (principal); F25.9 Schizoaffective disorder, unspecified; F41.9 Anxiety disorder, unspecified; O26.872 Cervical shortening, second trimester; Z3A.17 17 weeks gestation of pregnancy; Z21 Asymptomatic human immunodeficiency virus [HIV] infection status; Z91.14 Patient's other noncompliance with medication regimen; O99.02 Anemia complicating childbirth; D64.9 Anemia, unspecified; O99.512 Diseases of the respiratory system complicating pregnancy, second trimester; J45.909 Unspecified asthma, uncomplicated; O99.612 Diseases of the digestive system complicating pregnancy, second trimester; K21.9 Gastro-esophageal reflux disease without esophagitis; O99.352 Diseases of the nervous system complicating pregnancy, second trimester; G43.909 Migraine, unspecified, not intractable, without status migrainosus; Z87.891 Personal history of nicotine dependence; Z82.49 Family history of ischemic heart disease and other diseases of the circulatory system
CPT/HCPCS: 76805; 80048; 80053; 81003; 83735; 85025; 86355 90; 86359 90; 86360 90; 87086; 87480; 87491; 87510; 87536; 87591; 87660; 90839; 97166 GO; 99281; 99285; G0378; J2680; J7030

== ENCOUNTER 2017-05-13 20:00 | Emergency (ER) | payer OTHER ==
[~2017-05-13] VITALS: Ht 175.3 cm; Wt 108.6 kg
[~2017-05-13 20:00] MED LIST changes: +FLUPHENAZINE HCL5 MG PO; +RISPERDAL4 MG PO
[2017-05-13 20:42] LABS: HEMATOCRIT 29.7 % (36.0-46.0); HEMOGLOBIN 10.2 G/DL (11.9-15.5); MCH 29.1 PG (29.0-34.0); MCHC 34.3 G/DL (30.0-36.0); MCV 84.6 FL (83-99); PLATELET COUNT 243 K/uL (156-360); RBC DIS.WIDTH-CV 12.3 % (11.8-14.6); RBC DIS.WIDTH-SD 37.4 % (39-53); RED BLOOD COUNT 3.51 M/uL (3.80-5.20); WHITE BLOOD COUNT 4.7 K/uL (4.1-10.2)
[2017-05-13 20:51] LABS: ALBUMIN 2.9 g/dL (3.2-4.8); CHLORIDE 110 mEq/L (99-109); POTASSIUM 3.3 mEq/L (3.7-5.4); SODIUM 138 mEq/L (136-147)
[2017-05-13 20:53] LABS: GLUCOSE 99 mg/dL (70-99)
[2017-05-13 20:55] LABS: TOTAL BILIRUBIN 0.1 mg/dL (0.0-1.0)
[2017-05-13 20:57] LABS: ALKALINE PHOSPHATASE 94 IU/L (3-129); CREATININE 0.6 mg/dL (0.6-1.3); GFR ESTIMATE (CALCULATED) > 59 mL/min/
[2017-05-13 20:58] LABS: UREA NITROGEN (BUN) 5 mg/dL (9-23)
[2017-05-13 20:59] LABS: AST (GOT) 16 IU/L (2-34)
[2017-05-13 21:00] LABS: ALT (GPT) 15 IU/L (3-49)
[2017-05-13 22:21] LABS: APPEARANCE SL.HAZY ((CLEAR)); BILIRUBIN NEGATIVE; BLOOD MODERATE; COLOR YELLOW ((YELLOW)); GLUCOSE (STRIP) NEGATIVE; KETONES NEGATIVE; LEUKOCYTES SMALL; NITRITE NEGATIVE; PROTEIN (STRIP) 30; SPECIFIC GRAVITY 1.028 (1.000-1.030); UROBILINOGEN 0.2 MG/DL (0.2-1.0)
[2017-05-13 22:32] LABS: BACTERIA NONE SEEN /HPF; EPITHELIAL CELLS 2+ /HPF; MUCUS TRACE /LPF; UCUL ADDED? NO; WHITE BLOOD CELLS 0-5 /HPF (0-5)
[2017-05-13 22:44] VITALS: BP 107/70
== END 2017-05-13 23:26 | disposition home or self-care (01) ==
LOC: EME 20:00
PROVIDERS: Emergency Medicine Emergency Medical Services
DX: O09.892 Supervision of other high risk pregnancies, second trimester (principal); R10.9 Unspecified abdominal pain; Z3A.18 18 weeks gestation of pregnancy; O26.892 Other specified pregnancy related conditions, second trimester; N39.3 Stress incontinence (female) (male); O99.512 Diseases of the respiratory system complicating pregnancy, second trimester; J45.909 Unspecified asthma, uncomplicated; O99.612 Diseases of the digestive system complicating pregnancy, second trimester; K21.9 Gastro-esophageal reflux disease without esophagitis; O99.89 Other specified diseases and conditions complicating pregnancy, childbirth and the puerperium; M32.9 Systemic lupus erythematosus, unspecified; M06.9 Rheumatoid arthritis, unspecified; O98.712 Human immunodeficiency virus [HIV] disease complicating pregnancy, second trimester; Z21 Asymptomatic human immunodeficiency virus [HIV] infection status; O99.342 Other mental disorders complicating pregnancy, second trimester; F41.9 Anxiety disorder, unspecified; F32.9 Major depressive disorder, single episode, unspecified; F31.9 Bipolar disorder, unspecified; Z87.891 Personal history of nicotine dependence; Z87.19 Personal history of other diseases of the digestive system; Z90.49 Acquired absence of other specified parts of digestive tract; Z88.5 Allergy status to narcotic agent; Z88.0 Allergy status to penicillin; Z88.6 Allergy status to analgesic agent; Z91.040 Latex allergy status
CPT/HCPCS: 76805; 80053; 81003; 85027; 86900; 86901

== ENCOUNTER 2017-05-14 09:53 | Outpatient (CLI) | payer OTHER ==
[2017-05-14 10:38] VITALS: BP 117/74
== END 2017-05-14 13:25 | disposition home or self-care (01) ==
LOC: EME 09:53 → EDSTATUS 10:15 → LDRP-OP 10:20 → 2WEST 10:21
DX: O99.89 Other specified diseases and conditions complicating pregnancy, childbirth and the puerperium (principal); R10.9 Unspecified abdominal pain; O98.712 Human immunodeficiency virus [HIV] disease complicating pregnancy, second trimester; Z21 Asymptomatic human immunodeficiency virus [HIV] infection status; O34.32 Maternal care for cervical incompetence, second trimester; O99.342 Other mental disorders complicating pregnancy, second trimester; F20.9 Schizophrenia, unspecified; F41.9 Anxiety disorder, unspecified; O99.352 Diseases of the nervous system complicating pregnancy, second trimester; G89.29 Other chronic pain; Z3A.18 18 weeks gestation of pregnancy
CPT/HCPCS: G0378

== ENCOUNTER 2017-05-14 18:38 | Inpatient (IN) | payer OTHER ==
[~2017-05-14] VITALS: Ht 175.3 cm; Wt 108.2 kg
[2017-05-14 21:08] VITALS: BP 106/63
[2017-05-14 22:53] LABS: BASOPHIL (%) 0.4 % (0-1); EOSINOPHIL (%) 0.2 % (0-5); HEMATOCRIT 31.7 % (36.0-46.0); HEMOGLOBIN 10.4 G/DL (11.9-15.5); LYMPHOCYTE (%) 32.3 % (15-42); LYMPHOCYTE COUNT 1.7 K/uL (1.0-2.8); MCH 28.1 PG (29.0-34.0); MCHC 32.8 G/DL (30.0-36.0); MCV 85.7 FL (83-99); MONOCYTE (%) 7.6 % (3-12); MONOCYTE COUNT 0.4 K/uL (0-0.8); NEUTROPHIL (%) 58.5 % (45-76); PLATELET COUNT 251 K/uL (156-360); RBC DIS.WIDTH-CV 12.6 % (11.8-14.6); WHITE BLOOD COUNT 5.1 K/uL (4.1-10.2)
[2017-05-14 23:17] LABS: ALKALINE PHOSPHATASE 76 IU/L (3-129); CHLORIDE 107 MEQ/L (99-109); GLUCOSE 82 mg/dL (70-99); POTASSIUM 3.7 MEQ/L (3.7-5.4); SODIUM 135 MEQ/L (136-147); TOTAL BILIRUBIN 0.2 MG/DL (0.0-1.0)
[2017-05-14 23:54] VITALS: BP 115/68
[2017-05-15 00:11] LABS: ALT (GPT) 13 IU/L (3-49); AST (GOT) 12 IU/L (2-34); CREATININE 0.6 MG/DL (0.6-1.3); GFR ESTIMATE (CALCULATED) > 59 mL/min/; TOTAL PROTEIN 5.9 G/DL (6.4-8.3); UREA NITROGEN (BUN) 6 mg/dL (9-23)
[2017-05-15 02:21] VITALS: BP 109/63
[2017-05-15 03:25] LABS: LACTATE DEHYDROGENASE 101 IU/L (20-246)
[2017-05-15 07:46] VITALS: BP 123/62
[2017-05-15 13:58] VITALS: BP 113/68
[2017-05-15 16:19] VITALS: BP 113/69
[2017-05-15 19:37] VITALS: BP 111/62
[2017-05-15 22:06] VITALS: BP 115/58
[2017-05-16 07:29] VITALS: BP 113/60
[2017-05-16 12:07] VITALS: BP 112/57
[2017-05-16 16:29] VITALS: BP 99/56
[2017-05-16 19:36] VITALS: BP 111/55
[2017-05-16 23:46] VITALS: BP 108/59
[2017-05-17 03:49] VITALS: BP 94/55
[2017-05-17 06:12] LABS: BASOPHIL (%) 0 % (0-1); EOSINOPHIL (%) 0.5 % (0-5); HEMATOCRIT 30.2 % (36.0-46.0); IMMATURE GRANULOCYTE (%) 0.2 % (0.0-0.7); LYMPHOCYTE (%) 35.3 % (15-42); LYMPHOCYTE COUNT 1.5 K/uL (1.0-2.8); MCHC 33.1 G/DL (30.0-36.0); MCV 84.6 FL (83-99); MONOCYTE (%) 7.1 % (3-12); MONOCYTE COUNT 0.3 K/uL (0-0.8); NEUTROPHIL (%) 56.9 % (45-76); NEUTROPHIL COUNT 2.5 K/uL (1.8-6.4); PLATELET COUNT 217 K/uL (156-360); RBC DIS.WIDTH-CV 12.2 % (11.8-14.6); RED BLOOD COUNT 3.57 M/uL (3.80-5.20); WHITE BLOOD COUNT 4.3 K/uL (4.1-10.2)
[2017-05-17 10:07] VITALS: BP 108/63
[2017-05-17 14:49] VITALS: BP 101/57
[2017-05-17 19:09] VITALS: BP 110/60
[2017-05-17 22:52] VITALS: BP 109/63
[2017-05-18 03:14] VITALS: BP 108/60
[2017-05-18 07:23] VITALS: BP 118/69
== END 2017-05-18 09:06 | disposition home or self-care (01) | DRG 781 ==
LOC: EME 18:38 → LDRP-OP 18:38 → EDSTATUS 21:08 → 2WEST 21:10
PROVIDERS: Obstetrics & Gynecology
DX: O34.32 Maternal care for cervical incompetence, second trimester (principal); O99.342 Other mental disorders complicating pregnancy, second trimester; F25.9 Schizoaffective disorder, unspecified; F20.9 Schizophrenia, unspecified; F41.9 Anxiety disorder, unspecified; F31.9 Bipolar disorder, unspecified; O99.512 Diseases of the respiratory system complicating pregnancy, second trimester; J45.909 Unspecified asthma, uncomplicated; O99.612 Diseases of the digestive system complicating pregnancy, second trimester; K21.9 Gastro-esophageal reflux disease without esophagitis; O99.352 Diseases of the nervous system complicating pregnancy, second trimester; G43.909 Migraine, unspecified, not intractable, without status migrainosus; G89.29 Other chronic pain; M54.9 Dorsalgia, unspecified; O99.212 Obesity complicating pregnancy, second trimester; E66.9 Obesity, unspecified; O98.712 Human immunodeficiency virus [HIV] disease complicating pregnancy, second trimester; Z21 Asymptomatic human immunodeficiency virus [HIV] infection status; Z68.41 Body mass index [BMI] 40.0-44.9, adult; Z87.891 Personal history of nicotine dependence; Z91.14 Patient's other noncompliance with medication regimen; Z88.0 Allergy status to penicillin; Z88.5 Allergy status to narcotic agent; Z88.6 Allergy status to analgesic agent; Z91.040 Latex allergy status; Z3A.18 18 weeks gestation of pregnancy
CPT/HCPCS: 76805; 76815; 80053; 83615; 85025; 99281; 99284; G0378; J0690; J7120

== ENCOUNTER 2017-05-18 19:44 | Emergency (ER) | payer OTHER ==
[~2017-05-18] VITALS: Ht 167.6 cm; Wt 104.8 kg
[2017-05-18 21:02] VITALS: BP 117/85
== END 2017-05-18 21:03 | disposition home or self-care (01) ==
LOC: EME → EDBD 19:44 → EME 19:44
DX: O99.89 Other specified diseases and conditions complicating pregnancy, childbirth and the puerperium (principal); R10.9 Unspecified abdominal pain; N39.3 Stress incontinence (female) (male); M06.9 Rheumatoid arthritis, unspecified; O99.112 Other diseases of the blood and blood-forming organs and certain disorders involving the immune mechanism complicating pregnancy, second trimester; M32.9 Systemic lupus erythematosus, unspecified; O99.612 Diseases of the digestive system complicating pregnancy, second trimester; K21.9 Gastro-esophageal reflux disease without esophagitis; O99.512 Diseases of the respiratory system complicating pregnancy, second trimester; J45.909 Unspecified asthma, uncomplicated; O98.712 Human immunodeficiency virus [HIV] disease complicating pregnancy, second trimester; O99.342 Other mental disorders complicating pregnancy, second trimester; F41.9 Anxiety disorder, unspecified; F31.9 Bipolar disorder, unspecified; F32.9 Major depressive disorder, single episode, unspecified; Z3A.18 18 weeks gestation of pregnancy; Z87.891 Personal history of nicotine dependence; Z90.49 Acquired absence of other specified parts of digestive tract; Z88.5 Allergy status to narcotic agent; Z88.0 Allergy status to penicillin; Z91.040 Latex allergy status
CPT/HCPCS: 99281; 99283

== ENCOUNTER 2017-05-20 19:55 | Emergency (ER) | payer OTHER ==
[~2017-05-20] VITALS: Ht 175.3 cm; Wt 104.7 kg
[2017-05-20 20:59] LABS: HEMATOCRIT 33.1 % (36.0-46.0); HEMOGLOBIN 11.3 G/DL (11.9-15.5); MCH 28.6 PG (29.0-34.0); MCHC 34.1 G/DL (30.0-36.0); MCV 83.8 FL (83-99); PLATELET COUNT 247 K/uL (156-360); RBC DIS.WIDTH-CV 12.2 % (11.8-14.6); RBC DIS.WIDTH-SD 37.5 % (39-53); RED BLOOD COUNT 3.95 M/uL (3.80-5.20); WHITE BLOOD COUNT 6.8 K/uL (4.1-10.2)
[2017-05-20 21:08] LABS: ALBUMIN 3.4 g/dL (3.2-4.8)
[2017-05-20 21:09] LABS: CHLORIDE 106 mEq/L (99-109); POTASSIUM 3.4 mEq/L (3.7-5.4); SODIUM 137 mEq/L (136-147)
[2017-05-20 21:11] LABS: GLUCOSE 77 mg/dL (70-99); TOTAL PROTEIN 7.1 g/dL (6.4-8.3)
[2017-05-20 21:13] LABS: TOTAL BILIRUBIN 0.3 mg/dL (0.0-1.0)
[2017-05-20 21:14] LABS: ALKALINE PHOSPHATASE 101 IU/L (3-129)
[2017-05-20 21:15] LABS: CREATININE 0.7 mg/dL (0.6-1.3); GFR ESTIMATE (CALCULATED) > 59 mL/min/
[2017-05-20 21:16] LABS: AST (GOT) 16 IU/L (2-34); UREA NITROGEN (BUN) 8 mg/dL (9-23)
[2017-05-20 21:17] LABS: ALT (GPT) 15 IU/L (3-49)
[2017-05-20 21:39] LABS: QUANTITATIVE HCG 21772.5 MIU/ML
[2017-05-20 22:30] VITALS: BP 110/71
== END 2017-05-20 23:38 | disposition home or self-care (01) ==
LOC: EME 19:55
DX: O99.89 Other specified diseases and conditions complicating pregnancy, childbirth and the puerperium (principal); R10.84 Generalized abdominal pain; O99.342 Other mental disorders complicating pregnancy, second trimester; F20.9 Schizophrenia, unspecified; F32.9 Major depressive disorder, single episode, unspecified; F41.9 Anxiety disorder, unspecified; O99.512 Diseases of the respiratory system complicating pregnancy, second trimester; J45.909 Unspecified asthma, uncomplicated; O99.612 Diseases of the digestive system complicating pregnancy, second trimester; K21.9 Gastro-esophageal reflux disease without esophagitis; O98.713 Human immunodeficiency virus [HIV] disease complicating pregnancy, third trimester; Z21 Asymptomatic human immunodeficiency virus [HIV] infection status; Z3A.19 19 weeks gestation of pregnancy; Z88.0 Allergy status to penicillin; Z88.5 Allergy status to narcotic agent; Z87.891 Personal history of nicotine dependence
CPT/HCPCS: 76815; 80053; 81003; 84702; 85027; 99281; 99284

== ENCOUNTER 2017-07-02 13:32 | Inpatient (IN) | payer OTHER ==
[~2017-07-02] VITALS: Ht 166.4 cm; Wt 99.3 kg
[2017-07-02 15:02] LABS: HEMATOCRIT 31.7 % (36.0-46.0); HEMOGLOBIN 10.8 G/DL (11.9-15.5); MCH 29.1 PG (29.0-34.0); MCHC 34.1 G/DL (30.0-36.0); MCV 85.4 FL (83-99); PLATELET COUNT 232 K/uL (156-360); RBC DIS.WIDTH-SD 40.1 % (39-53); RED BLOOD COUNT 3.71 M/uL (3.80-5.20); WHITE BLOOD COUNT 5.8 K/uL (4.1-10.2)
[2017-07-02 15:11] LABS: ALBUMIN 3.5 g/dL (3.2-4.8)
[2017-07-02 15:12] LABS: CHLORIDE 110 mEq/L (99-109); POTASSIUM 3.8 mEq/L (3.7-5.4); SODIUM 138 mEq/L (136-147)
[2017-07-02 15:14] LABS: TOTAL PROTEIN 7.1 g/dL (6.4-8.3)
[2017-07-02 15:15] LABS: APPEARANCE CLOUDY ((CLEAR)); BILIRUBIN NEGATIVE; BLOOD NEGATIVE; COLOR AMBER ((YELLOW)); GLUCOSE (STRIP) NEGATIVE; KETONES 5; LEUKOCYTES MODERATE; NITRITE NEGATIVE; PROTEIN (STRIP) 100; SPECIFIC GRAVITY 1.027 (1.000-1.030)
[2017-07-02 15:16] LABS: TOTAL BILIRUBIN 0.4 mg/dL (0.0-1.0)
[2017-07-02 15:17] LABS: ALKALINE PHOSPHATASE 99 IU/L (3-129)
[2017-07-02 15:18] LABS: CREATININE 0.7 mg/dL (0.6-1.3); GFR ESTIMATE (CALCULATED) > 59 mL/min/
[2017-07-02 15:19] LABS: AST (GOT) 16 IU/L (2-34); GLUCOSE 80 mg/dL (70-99); UREA NITROGEN (BUN) 5 mg/dL (9-23)
[2017-07-02 15:20] LABS: ALT (GPT) 17 IU/L (3-49)
[2017-07-02 15:21] LABS: LIPASE 14 U/L (1.0-51.0)
[2017-07-02 15:28] LABS: QUANTITATIVE HCG 13846.4 MIU/ML
[2017-07-02 15:32] LABS: BACTERIA RARE /HPF; EPITHELIAL CELLS 3+ /HPF; HYALINE CASTS 0-5 /LPF; MUCUS 3+ /LPF; RED BLOOD CELLS 0-5 /HPF (0-5); UCUL ADDED? YES
[2017-07-02 15:33] LABS: AMORPHOUS URATES CRYSTALS 2+
[2017-07-02 17:22] VITALS: BP 116/56
[2017-07-03 09:13] VITALS: BP 89/50
[2017-07-03 16:38] VITALS: BP 90/50
[2017-07-04 09:11] VITALS: BP 92/52
[2017-07-04 16:30] VITALS: BP 89/53
[2017-07-05 07:56] VITALS: BP 98/48
[2017-07-05 16:14] VITALS: BP 92/54
== END 2017-07-05 22:24 | disposition hospice, inpatient (51) | DRG 781 ==
LOC: EME 13:32 → 1WEST 16:02 → EDOF 16:02 → ENRESERV 16:57 → 1WEST 17:12
PROVIDERS: Nurse Practitioner Family
DX: O99.343 Other mental disorders complicating pregnancy, third trimester (principal); Z88.1 Allergy status to other antibiotic agents; Z88.0 Allergy status to penicillin; F25.9 Schizoaffective disorder, unspecified; Z21 Asymptomatic human immunodeficiency virus [HIV] infection status
CPT/HCPCS: 36415; 76805; 80053; 81003; 82950; 83690; 84702; 85025; 85027; 86235; 86355 90; 86359 90; 86360 90; 86780; 87086; 87536; 90839; 97150 GO; 97165 GO; 99281; 99284; Q0169

== ENCOUNTER 2017-07-05 22:46 | Outpatient (CLI) | payer OTHER ==
[2017-07-05 22:58] VITALS: BP 103/61
[2017-07-05 23:40] LABS: SOURCE URINE
[2017-07-06 00:04] VITALS: BP 101/61
[2017-07-06 00:19] VITALS: BP 80/51
[2017-07-06 00:23] LABS: AMPHETAMINE NEGATIVE (500 ng/mL); BARBITURATES NEGATIVE (200 ng/mL); BENZODIAZEPINES NEGATIVE (150 ng/mL); BUPRENORPHINE NEGATIVE (10 ng/mL); COCAINE NEGATIVE (150 ng/mL); METHADONE NEGATIVE (200 ng/mL); METHAMPHETAMINE NEGATIVE (500 ng/mL); OPIATES (MORPHINE) NEGATIVE (100 ng/mL); OXYCODONE NEGATIVE (100 ng/mL); PHENCYCLIDINE NEGATIVE (25 ng/mL); PROPOXYPHENE NEGATIVE (300 ng/mL); THC CANNABINOIDS NEGATIVE (50 ng/mL); TRICYCLIC ANTIDEPRESSANTS NEGATIVE (300 ng/mL)
[2017-07-06 00:36] VITALS: BP 111/65
[2017-07-06 00:40] LABS: CANDIDA DNA PROBE NEGATIVE; GARDNERELLA DNA PROBE POSITIVE; TRICHOMONAS DNA PROBE NEGATIVE
[2017-07-06 01:07] VITALS: BP 109/55
[2017-07-06 01:37] VITALS: BP 107/60
[2017-07-06 02:07] VITALS: BP 107/64
[2017-07-07 13:39] LABS: CHLAMYDIA TRACHOMATIS NEGATIVE; NEISSERIA GONORRHOEAE NEGATIVE
== END 2017-07-06 02:41 | disposition short-term general hospital (02) ==
LOC: LDRP-OP 22:46 → 2WEST 22:47 → LDRP-OP 11-10 17:31
PROVIDERS: Obstetrics & Gynecology
DX: O42.912 Preterm premature rupture of membranes, unspecified as to length of time between rupture and onset of labor, second trimester (principal); O98.712 Human immunodeficiency virus [HIV] disease complicating pregnancy, second trimester; O99.342 Other mental disorders complicating pregnancy, second trimester; O34.32 Maternal care for cervical incompetence, second trimester; O99.212 Obesity complicating pregnancy, second trimester; F25.9 Schizoaffective disorder, unspecified; F31.9 Bipolar disorder, unspecified; F41.9 Anxiety disorder, unspecified; E66.9 Obesity, unspecified; Z3A.26 26 weeks gestation of pregnancy; Z87.891 Personal history of nicotine dependence; Z21 Asymptomatic human immunodeficiency virus [HIV] infection status
CPT/HCPCS: 59025; 87480; 87491; 87510; 87591; 87660; G0378; J0702; J1580; J3475; J7050; J7120; S0030